=== PATIENT | male | born 1965 | race Caucasian/White ===

== ENCOUNTER 2017-01-19 18:12 | Observation (INO) | payer SELFPAY ==
[~2017-01-19] VITALS: Ht 177.8 cm; Wt 80.0 kg
[2017-01-19 18:21] VITALS: BP 107/59; PULSE 79; RESP 18; TEMP 98.8; O2SAT 98
[2017-01-19] MEDS ORDERED: SODIUM CHLOR 0.9% 1000 ML INJ 1,000 ML IV ONE (18:26)
--- NOTE | 2017-01-19 18:28 | PD ---
HPI Chief Complaint: Complaint Time Seen by Provider: 18:18 Travel History International Travel<30 days: No Contact w/Intl Traveler<30days: No Traveled to known affect area: No History of Present Illness HPI This is a 51-year-old Irish the patient presents via EMS for evaluation. He reports that prior to arrival he developed some pain in the left groin. After urinating the pain began radiating into the left flank region. The pain is now a sharp pain that is constant, no aggravating or relieving factors. He endorses some nausea but denies vomiting. He denies fevers or chills, gross hematuria, testicular or scrotal pain. He reports that he had a kidney stone once 6 years ago. He has no other complaints at this time. [facility] Past Medical History Diabetes: Yes Social History Alcohol Use: No Tobacco Use: No Allergies-Medications (Allergen,Severity, Reaction): Coded Allergies: No Known Allergies (Unverified , 01/19/17) Review of Systems Except as stated in HPI: all other systems reviewed are Neg Physical Exam Narrative GENERAL: Well-developed well-nourished male in no acute distress SKIN: Warm and dry. HEAD: Atraumatic. Normocephalic. EYES: Pupils equal and round. No scleral icterus. No injection or drainage. ENT: No nasal bleeding or discharge. Mucous membranes pink and moist. NECK: Trachea midline. No JVD. CARDIOVASCULAR: Regular rate and rhythm. No murmur appreciated. RESPIRATORY: No accessory muscle use. Clear to auscultation. Breath sounds equal bilaterally. GASTROINTESTINAL: Abdomen soft, non-tender, nondistended. Hepatic and splenic margins not palpable. Mild left CVA tenderness is present. : Normal-appearing scrotum, penis. There is no tenderness to palpation to the testicles. No inguinal hernia palpable. MUSCULOSKELETAL: No obvious deformities. No clubbing. No cyanosis. No edema. NEUROLOGICAL: Awake and alert. No obvious cranial nerve deficits. Motor grossly within normal limits. Normal speech. PSYCHIATRIC: Appropriate mood and affect; insight and judgment normal. Data Data Last Documented VS Vital Signs Date Time Temp Pulse Resp B/P (MAP) Pulse Ox O2 Delivery O2 Flow Rate FiO2 01/19/17 20:08 98.5 69 18 116/62 (80) 96 Room Air Orders Orders Complete Blood Count With Diff (01/19/17 18:26) Comprehensive Metabolic Panel (01/19/17 18:26) Urinalysis - C+S If Indicated (01/19/17 18:26) Ct Abd/Pel W/O Iv Contrast (01/19/17 18:26) Ecg Monitoring (01/19/17 18:26) Iv Access Insert/Monitor (01/19/17 18:26) Ketorolac Inj (Toradol Inj) (01/19/17 18:30) Morphine Inj (Morphine Inj) (01/19/17 18:30) Ondansetron Inj (Zofran Inj) (01/19/17 18:30) Sodium Chloride 0.9% Flush (Ns Flush) (01/19/17 18:30) Sodium Chlor 0.9% 1000 Ml Inj (Ns 1000 M (01/19/17 18:26) Potassium Chloride (Kcl) (01/19/17 20:30) Place In Observation (01/19/17 ) Vital Signs (Adult) Q4H (01/19/17 21:12) Activity Oob With Assistance (01/19/17 21:12) Straightening Press Operator Helper / Telemetry .CONTINUOUS (01/19/17 21:12) Diet Npo (01/20/17 Breakfast) Sodium Chlor 0.9% 1000 Ml Inj (Ns 1000 M (01/19/17 21:12) Sodium Chloride 0.9% Flush (Ns Flush) (01/19/17 21:15) Sodium Chloride 0.9% Flush (Ns Flush) (01/20/17 09:00) Ondansetron Inj (Zofran Inj) (01/19/17 21:15) Comprehensive Metabolic Panel (01/20/17 06:00) Complete Blood Count With Diff (01/20/17 06:00) Case Management Consult (01/19/17 21:12) Naloxone Inj (Narcan Inj) (01/19/17 21:15) Morphine Inj (Morphine Inj) (01/19/17 21:15) Admit Order (Ed Use Only) (01/19/17 21:12) Labs Laboratory Tests Test 01/19/17 18:30 01/19/17 18:40 White Blood Count 13.4 TH/MM3 Red Blood Count 4.34 MIL/MM3 Hemoglobin 13.5 GM/DL Hematocrit 39.7 % Mean Corpuscular Volume 91.4 FL Mean Corpuscular Hemoglobin 31.0 PG Mean Corpuscular Hemoglobin Concent 34.0 % Red Cell Distribution Width 13.2 % Platelet Count 237 TH/MM3 Mean Platelet Volume 8.6 FL Neutrophils (%) (Auto) 59.4 % Lymphocytes (%) (Auto) 26.9 % Monocytes (%) (Auto) 10.1 % Eosinophils (%) (Auto) 3.1 % Basophils (%) (Auto) 0.5 % Neutrophils # (Auto) 8.0 TH/MM3 Lymphocytes # (Auto) 3.6 TH/MM3 Monocytes # (Auto) 1.4 TH/MM3 Eosinophils # (Auto) 0.4 TH/MM3 Basophils # (Auto) 0.1 TH/MM3 CBC Comment DIFF FINAL Differential Comment Blood Urea Nitrogen 17 MG/DL Creatinine 1.16 MG/DL Random Glucose 93 MG/DL Total Protein 7.5 GM/DL Albumin 4.4 GM/DL Calcium Level 8.9 MG/DL Alkaline Phosphatase 77 U/L Aspartate Amino Transf (AST/SGOT) 26 U/L Alanine Aminotransferase (ALT/SGPT) 59 U/L Total Bilirubin 0.8 MG/DL Sodium Level 140 MEQ/L Potassium Level 3.2 MEQ/L Chloride Level 105 MEQ/L Carbon Dioxide Level 24.8 MEQ/L Anion Gap 10 MEQ/L Estimat Glomerular Filtration Rate 67 ML/MIN Urine Color YELLOW Urine Turbidity CLEAR Urine pH 6.5 Urine Specific [place] 1.025 Urine Protein 30 mg/dL Urine Glucose (UA) NEG mg/dL Urine Ketones 40 mg/dL Urine Occult Blood LARGE Urine Nitrite NEG Urine Bilirubin NEG Urine Urobilinogen 2.0 MG/DL Urine Leukocyte Esterase NEG Urine RBC /hpf Urine WBC 2 /hpf Microscopic Urinalysis Comment CULT NOT INDICATED MDM Medical Decision Making Medical Screen Exam Complete: Yes Emergency Medical Condition: Yes Medical Record Reviewed: Yes Differential Diagnosis Renal stone, hydronephrosis, testicular torsion, inguinal hernia, diverticulitis Narrative Course 51-year-old male here with left flank and groin pain which started prior to arrival. He appears well. Plan is for basic lab work, urinalysis, CT abdomen and pelvis. Given IV fluids, morphine, Zofran and Toradol. Upon examination he feels significant improved, still mild pain. CONCLUSION: 1. Acute obstructive uropathy on the left secondary to a 4 mm calcified calculus just proximal to the left ureterovesical junction resulting in mild ureteropelvicaliectasis on the left. 2. 3. Fluid-filled dilated retrocecal appendix with minimal periappendiceal inflammatory changes raising the possibility of appendicitis. This finding was called to the physician's physician assistant surgery at 8: 4. 20 PM on 01/19/2017 as this is likely unsuspected. 5. Tiny calcified nonobstructing right renal calculi. 6. Enlarged prostate. 7. Hepatomegaly. CT findings reveal an acute obstructive uropathy on the left as well as surprisingly a fluid-filled dilated retrocecal appendix with mild inflammatory changes raising the possibility of appendicitis. He does have mild leukocytosis. He has no tenderness to palpation in the right lower quadrant. Discussed the findings with on-call surgeon Dr. Hancock who would like the patient to be admitted to medicine with consultation himself, NPO after midnight reevaluate the patient tomorrow. Discussed with the patient is agreeable. Discussed with Dr. Guallpa who is agreeable with admission. Diagnosis Primary Impression: Obstructive uropathy Additional Impression: Atypical appendicitis Admitting Information Admitting Physician Requests: Observation Willam Sellers Jan 19, 2017 18:28
[2017-01-19] MEDS ORDERED: ONDANSETRON HCL 4 MG/2 ML VIAL IVP ONE (18:30)
[2017-01-19] MEDS ORDERED: KETOROLAC TROMETHAMINE 30 MG/ML (IVP) VIAL IVP ONE (18:30)
[2017-01-19] MEDS ORDERED: MORPHINE SULFATE 4 MG/ML INJ IV ONE (18:30)
[2017-01-19] MEDS ORDERED: SODIUM CHLORIDE 0.9% FLUSH 10 ML FLUSH IVF PRN (18:30)
[2017-01-19 18:59] LABS: BLOOD, URINE LARGE (NEG); COMMENT (UR) CULT NOT INDICATED; CULTURE IF INDICATED CULT NOT INDICATED; GLUCOSE,URINE NEG (NEG); KETONE, URINE 40 mg/dL (NEG); NITRITE,URINE NEG (NEG); PH, URINE 6.5 (5.0-8.5); URINE COLOR YELLOW (YELLW/STRAW)
[2017-01-19 19:00] LABS: BASOPHIL # 0.1 TH/MM3 (0-0.2); BASOPHIL % 0.5 % (0.0-2.0); EOSINOPHIL # 0.4 TH/MM3 (0-0.4); EOSINOPHIL % 3.1 % (0.0-4.0); HEMATOCRIT 39.7 % (39.0-51.0); HEMO FLAGS DIFF FINAL; LYMPH % 26.9 % (9.0-44.0); LYMPHOCYTE # 3.6 TH/MM3 (1.0-4.8); MEAN CELL VOLUME 91.4 FL (80.0-100.0); MONO % 10.1 % (0.0-8.0); NEUT % 59.4 % (16.0-70.0); PLATELET COUNT 237 TH/MM3 (150-450); RED BLOOD COUNT 4.34 MIL/MM3 (4.50-5.90); RED CELL DISTRIBUTION WIDTH 13.2 % (11.6-17.2); WHITE BLOOD COUNT 13.4 TH/MM3 (4.0-11.0)
[2017-01-19 19:10] LABS: ANION GAP 10 MEQ/L (5-15); AST (GOT) 26 U/L (15-37); BICARBONATE 24.8 MEQ/L (21.0-32.0); BLOOD UREA NITROGEN 17 MG/DL (7-18); CHLORIDE 105 MEQ/L (98-107); GLOMERULAR FILTRATION RATE 67 ML/MIN (>89); POTASSIUM 3.2 MEQ/L (3.5-5.1); SODIUM (NA) 140 MEQ/L (136-145)
[2017-01-19 19:11] LABS: ALT (GPT) 59 U/L (12-78)
[2017-01-19 19:13] LABS: ALKALINE PHOSPHATASE 77 U/L (45-117); TOTAL BILIRUBIN ADULT 0.8 MG/DL (0.2-1.0)
[2017-01-19 20:08] VITALS: BP 116/62; PULSE 69; RESP 18; TEMP 98.5; O2SAT 96
[2017-01-19] MEDS ORDERED: POTASSIUM CHLORIDE 20 MEQ CONTROLLED RELEASE TAB PO ONE (20:30)
--- NOTE | 2017-01-19 20:34 | RADRPT ---
EXAM DATE/TIME: 01/19/2017 19:50 [place] COMPARISON: No previous studies available for comparison. INDICATIONS : Left flank pain past week. ORAL CONTRAST: No oral contrast ingested. RADIATION DOSE: 13.83 CTDIvol (mGy) MEDICAL HISTORY : Diabetes mellitus type 2. Renal calculi. SURGICAL HISTORY : None. ENCOUNTER: Initial ACUITY: 1 week PAIN SCALE: 8/10 LOCATION: Left flank TECHNIQUE: Volumetric scanning of the abdomen and pelvis was performed. Using automated exposure control and ad justment of the mA and/or kV according to patient size, radiation dose was kept as low as reasonably achievable to obtain optimal diagnostic quality images. DICOM format image data is available electro nically for review and comparison. FINDINGS: There is evidence of acute obstructive uropathy of the left distal ureter secondary to a 4 mm calcifi ed calculus at the level just above the left ureterovesical junction resulting in mild ureteropelvica liectasis on the left. Tiny calcified nonobstructing right renal calculi are noted with the larger of the two measuring approximately 3 mm. The liver is prominent in size. Evaluation of the solid orga ns of the abdomen is limited by the lack of intravenous contrast. No calcified gallstone is noted wit hin the gallbladder. There is evidence of a fluid-filled mildly dilated appendix with minimal periap pendiceal inflammatory changes raising the possibility of appendicitis. Clinical correlation is recom mended. This finding was called to the physician real estate executive assistant as this likely is unsuspected. The append ix is retrocecal in location. The prostate gland is mildly prominent. The urinary bladder is unremar kable. CONCLUSION: 1. Acute obstructive uropathy on the left secondary to a 4 mm calcified calculus just proximal to the left ureterovesical junction resulting in mild ureteropelvicaliectasis on the left. 2. 3. Fluid-filled dilated retrocecal appendix with minimal periappendiceal inflammatory changes raising the possibility of appendicitis. This finding was called to the physician's real estate executive assistant at 8: 4. 20 PM on 01/19/2017 as this is likely unsuspected. 5. Tiny calcified nonobstructing right renal calculi. 6. Enlarged prostate. 7. Hepatomegaly. Pasquale Obando MD on January 19, 2017 at 20:14 Board Certified Radiologist. This report was verified electronically.
[2017-01-19] MEDS ORDERED: NALOXONE HCL 0.4 MG/ML AMP IV PUSH PRN (21:15)
[2017-01-19] MEDS ORDERED: MORPHINE SULFATE 4 MG/ML INJ IV PUSH PRN (21:15)
[2017-01-19] MEDS ORDERED: ONDANSETRON HCL 4 MG/2 ML VIAL IVP PRN (21:15)
[2017-01-19] MEDS ORDERED: SODIUM CHLORIDE 0.9% FLUSH 10 ML FLUSH IV FLUSH PRN (21:15)
[2017-01-19] MEDS: SODIUM CHLOR 0.9% 1000 ML INJ 1,000 ML IV SCH (21:38)
[2017-01-19 23:35] VITALS: BP 137/81; PULSE 66; RESP 18; TEMP 98.4; O2SAT 96
[2017-01-20 03:26] VITALS: BP 135/79; PULSE 68; RESP 18; TEMP 98.4; O2SAT 97
[2017-01-20 05:34] VITALS: PULSE 72
[2017-01-20 07:15] VITALS: PULSE 56
[2017-01-20 07:32] LABS: AUTOMATED NEUTROPHIL # 5.8 TH/MM3 (1.8-7.7); BASOPHIL # 0.1 TH/MM3 (0-0.2); BASOPHIL % 0.8 % (0.0-2.0); EOSINOPHIL # 0.3 TH/MM3 (0-0.4); EOSINOPHIL % 3.5 % (0.0-4.0); HEMATOCRIT 37.4 % (39.0-51.0); HEMO FLAGS DIFF FINAL; LYMPH % 25.7 % (9.0-44.0); LYMPHOCYTE # 2.5 TH/MM3 (1.0-4.8); MEAN CELL VOLUME 92.7 FL (80.0-100.0); MEAN CORPUSCULAR HEMOGLOBIN 31.6 PG (27.0-34.0); MONO % 11.2 % (0.0-8.0); NEUT % 58.8 % (16.0-70.0); PLATELET COUNT 217 TH/MM3 (150-450); RED BLOOD COUNT 4.04 MIL/MM3 (4.50-5.90); RED CELL DISTRIBUTION WIDTH 13.3 % (11.6-17.2); WHITE BLOOD COUNT 9.8 TH/MM3 (4.0-11.0)
[2017-01-20] MEDS: SODIUM CHLOR 0.9% 1000 ML INJ 1,000 ML IV SCH (07:52)
[2017-01-20 08:07] LABS: ALKALINE PHOSPHATASE 63 U/L (45-117); ALT (GPT) 52 U/L (12-78); ANION GAP 6 MEQ/L (5-15); AST (GOT) 24 U/L (15-37); BICARBONATE 23.6 MEQ/L (21.0-32.0); BLOOD UREA NITROGEN 15 MG/DL (7-18); CHLORIDE 111 MEQ/L (98-107); GLOMERULAR FILTRATION RATE 93 ML/MIN (>89); SODIUM (NA) 141 MEQ/L (136-145); TOTAL BILIRUBIN ADULT 1.2 MG/DL (0.2-1.0)
[2017-01-20 08:15] VITALS: BP 114/67; PULSE 63; RESP 16; TEMP 98.1; O2SAT 95
[2017-01-20] MEDS ORDERED: SODIUM CHLORIDE 0.9% FLUSH 10 ML FLUSH IV FLUSH SCH (09:00)
--- NOTE | 2017-01-20 11:09 | HHI.HP ---
[facility] No Primary Care Physician Admission Diagnosis left obstructive uropathy, possible appendicitis Diagnoses: Chief Complaint: left groin pain Travel History International Travel<30 Days: No Contact w/Intl Traveler <30 Da: No Traveled to Known Affected Are: No History of Present Illness Written by Carolann Foy, acting as scribe for Dr. Rosa on 01/20/17 at 10: 45. 51-year-old male with history of diabetes mellitus and hypertension presents with acute onset of left groin pain. 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 The patient's symptoms started at 5:30pm yesterday. He states he was walking and lifting objects when a few seconds later he developed the pain. He locates the pain to the left groin with radiation to the left flank, described as intermittent stabbing pains. He also reports nausea, but no vomiting, which started after the pain. He reports chills but no fevers. He denies any lightheadedness or dizziness. Denies any constipation or diarrhea. His last BM was yesterday morning. He denies any dysuria. He has no other medical complaints at this time. Currently the patient is seen in observation, his symptoms have improved, he wants to eat. Review of Systems Except as stated in HPI: all other systems reviewed are Neg Past Family Social History Past Medical History Diabetes mellitus Hypertension Past Surgical History Denies any prior surgeries. Reported Medications Glibenclamida (glyburide) 5mg 1/2 tablet 3x a day with meals enalapril 10mg daily Allergies: Coded Allergies: No Known Allergies (Unverified , 01/19/17) Active Ordered Medications Current Medications Medications (Trade) Dose Ordered Sig/Karma Route Start Time Stop Time Status Last Admin Sodium Chloride 1,000 ml @ 100 mls/hr Q10H IV 01/19/17 21:12 01/20/17 07:52 (NS Flush) 2 ml UNSCH PRN IV FLUSH 01/19/17 21:15 (NS Flush) 2 ml BID IV FLUSH 01/20/17 09:00 (Zofran Inj) 4 mg Q6H PRN IVP 01/19/17 21:15 (Narcan Inj) 0.4 mg UNSCH PRN IV PUSH 01/19/17 21:15 (Morphine Inj) 2 mg Q3H PRN IV PUSH 01/19/17 21:15 01/20/17 05:24 Family History Denies any significant family history of diabetes, heart disease, or stroke. Social History Smokes tobacco, approximately 10 cigarettes daily, sometimes less; since age 19 Denies any alcohol use Denies any illicit drug use Physical Exam Vital Signs Vital Signs Date Time Temp Pulse Resp B/P (MAP) Pulse Ox O2 Delivery O2 Flow Rate FiO2 01/20/17 08:15 98.1 63 16 114/67 (83) 95 01/20/17 07:15 56 01/20/17 05:34 72 01/20/17 03:26 98.4 68 18 135/79 (97) 97 01/19/17 23:35 98.4 66 18 137/81 (99) 96 01/19/17 22:00 01/19/17 20:08 98.5 69 18 116/62 (80) 96 Room Air 01/19/17 18:21 98.8 79 18 107/59 (75) 98 Physical Exam GENERAL: Well-nourished, well-developed middle aged male patient in [facility]. SKIN: Warm and dry. No rash. HEAD: Normocephalic. Atraumatic. EYES: Pupils equal and round. No scleral icterus. No injection or drainage. ENT: No nasal bleeding or discharge. Mucous membranes pink and moist. NECK: Supple. Trachea midline. CARDIOVASCULAR: Regular rate and rhythm. S1, S2 noted. No murmur appreciated. RESPIRATORY: No accessory muscle use. Clear to auscultation. Breath sounds equal bilaterally. GASTROINTESTINAL: Abdomen soft, non-tender, nondistended. Normoactive bowel sounds x4. No palpable masses or hernias. MUSCULOSKELETAL: No obvious deformities. Extremities without clubbing, cyanosis , or edema. NEUROLOGICAL: Awake and alert. No obvious cranial nerve deficits. Motor grossly within normal limits. Normal speech. PSYCHIATRIC: Appropriate mood and affect; insight and judgment normal. Laboratory Laboratory Tests Test 01/19/17 18:30 01/19/17 18:40 01/20/17 06:37 White Blood Count 13.4 9.8 Red Blood Count 4.34 4.04 Hemoglobin 13.5 12.7 Hematocrit 39.7 37.4 Mean Corpuscular Volume 91.4 92.7 Mean Corpuscular Hemoglobin 31.0 31.6 Mean Corpuscular Hemoglobin Concent 34.0 34.0 Red Cell Distribution Width 13.2 13.3 Platelet Count 237 217 Mean Platelet Volume 8.6 8.7 Neutrophils (%) (Auto) 59.4 58.8 Lymphocytes (%) (Auto) 26.9 25.7 Monocytes (%) (Auto) 10.1 11.2 Eosinophils (%) (Auto) 3.1 3.5 Basophils (%) (Auto) 0.5 0.8 Neutrophils # (Auto) 8.0 5.8 Lymphocytes # (Auto) 3.6 2.5 Monocytes # (Auto) 1.4 1.1 Eosinophils # (Auto) 0.4 0.3 Basophils # (Auto) 0.1 0.1 CBC Comment DIFF FINAL DIFF FINAL Differential Comment Blood Urea Nitrogen 17 15 Creatinine 1.16 0.87 Random Glucose 93 96 Total Protein 7.5 6.5 Albumin 4.4 3.3 Calcium Level 8.9 8.1 Alkaline Phosphatase 77 63 Aspartate Amino Transf (AST/SGOT) 26 24 Alanine Aminotransferase (ALT/SGPT) 59 52 Total Bilirubin 0.8 1.2 Sodium Level 140 141 Potassium Level 3.2 4.0 Chloride Level 105 111 Carbon Dioxide Level 24.8 23.6 Anion Gap 10 6 Estimat Glomerular Filtration Rate 67 93 Urine Color YELLOW Urine Turbidity CLEAR Urine pH 6.5 Urine Specific [place] 1.025 Urine Protein 30 Urine Glucose (UA) NEG Urine Ketones 40 Urine Occult Blood LARGE Urine Nitrite NEG Urine Bilirubin NEG Urine Urobilinogen 2.0 Urine Leukocyte Esterase NEG Urine RBC Urine WBC 2 Microscopic Urinalysis Comment CULT NOT INDICATED Result Diagram: 01/20/17 0637 01/20/17 0637 Imaging Last Impressions Abdomen/Pelvis CT 01/19/17 1826 Signed Impressions: Service Date/Time: Thursday, January 19, 2017 19:50 - CONCLUSION: 1. Acute obstructive uropathy on the left secondary to a 4 mm calcified calculus just proximal to the left ureterovesical junction resulting in mild ureteropelvicaliectasis on the left. 2. 3. Fluid-filled dilated retrocecal appendix with minimal periappendiceal inflammatory changes raising the possibility of appendicitis. This finding was called to the physician's social work assistant at 8: 4. 20 PM on 01/19/2017 as this is likely unsuspected. 5. Tiny calcified nonobstructing right renal calculi. 6. Enlarged prostate. 7. Hepatomegaly. MD Katey Ramirez VTE Risk Assessment Caprini VTE Risk Assessment: No/Low Risk (score <= 1) Caprini Risk Assessment Model Point Value = 1 Point Value = 2 Point Value = 3 Point Value = 5 Age 41-60 Minor surgery BMI > 25 kg/m2 Swollen legs Varicose veins or History of unexplained or recurrent spontaneous Oral contraceptives or hormone replacement Sepsis (< 1 month) Serious lung disease, including pneumonia (< 1 month) Abnormal pulmonary function Acute myocardial infarction Congestive heart failure (< 1 month) History of inflammatory bowel disease Medical patient at bed rest Age 61-74 Arthroscopic surgery Major open surgery (> 45 min) Laparoscopic surgery (> 45 min) Malignancy Confined to bed (> 72 hours) Immobilizing plaster cast Central venous access Age >= 75 History of VTE Family history of VTE Factor V Leiden Prothrombin [id number] Lupus anticoagulant Anticardiolipin antibodies Elevated serum homocysteine Heparin-induced thrombocytopenia Other congenital or acquired thrombophilia Stroke (< 1 month) Elective arthroplasty Hip, pelvis, or leg fracture Acute spinal cord injury (< 1 month) Prophylaxis Regimen Total Risk Factor Score Risk Level Prophylaxis Regimen 0-1 Low Early ambulation 2 Moderate Order ONE of the following: *Sequential Compression Device (SCD) *Heparin 5000 units SQ BID 3-4 Higher Order ONE of the following medications: *Heparin 5000 units SQ TID *Enoxaparin/Lovenox 40 mg SQ daily (WT < 150 kg, CrCl > 30 mL/min) *Enoxaparin/Lovenox 30 mg SQ daily (WT < 150 kg, CrCl > 10-29 mL/min) *Enoxaparin/Lovenox 30 mg SQ BID (WT < 150 kg, CrCl > 30 mL/min) AND/OR *Sequential Compression Device (SCD) 5 or more Highest Order ONE of the following medications: *Heparin 5000 units SQ TID (Preferred with Epidurals) *Enoxaparin/Lovenox 40 mg SQ daily (WT < 150 kg, CrCl > 30 mL/min) *Enoxaparin/Lovenox 30 mg SQ daily (WT < 150 kg, CrCl > 10-29 mL/min) *Enoxaparin/Lovenox 30 mg SQ BID (WT < 150 kg, CrCl > 30 mL/min) AND *Sequential Compression Device (SCD) Assessment and Plan Problem List: (1) Obstructive uropathy ICD Code: N13.9 - Obstructive and reflux uropathy, unspecified Status: Acute (2) Atypical appendicitis ICD Code: K36 - Other appendicitis Status: Acute Assessment and Plan 51-year-old male with history of diabetes mellitus and hypertension presents with acute onset of left groin pain. Left Groin Pain, secondary to Obstructive Uropathy with Nephrolithiasis: CT abd/ pelvis images reviewed, shows Acute obstructive uropathy on the left secondary to a 4 mm calcified calculus just proximal to the left ureterovesical junction resulting in mild ureteropelvicaliectasis on the left. -continue IVF -supportive treatment with pain control and antiemetics prn -consulted Urology, discussed with Dr. Jimenez, no surgery indicated as patient's pain resolved, likely passed stone, recommends toradol and flomax, ok to d/c from urological standpoint Abnormal Appendix: CT abd/pelvis also showed Fluid-filled dilated retrocecal appendix with minimal periappendiceal inflammatory changes raising the possibility of appendicitis. Patient has no RLQ pain. 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 Pain well controlled. He tolerated oral intake. Stable for discharge. He plans to return to [place]. Discharge patient to home Condition on discharge: Improved Heart Healthy/Diabetic Diet as tolerated Ad Daria activity Rx written: flomax 0.4mg daily, ketorolac 10mg q8h prn pain #20 Follow-up with primary care physician and urology Attending Statement This note was transcribed by nando [Carolann Foy]. I, Dr. Kaiser Rosa personally performed the history, physical exam, and medical decision making; and confirmed the accuracy of the information in the transcribed note. Authenticated by Dr. Kaiser Rosa on 01/20/17 at 22:23. Carolann Foy PA-C Jan 20, 2017 10:48 Kaiser Rosa MD Jan 20, 2017 22:23
--- NOTE | 2017-01-20 11:37 | PD.CONS ---
HPI Service General surgery Consult Requested By Reason for Consult Abnormal appendix on imaging Primary Care Physician No Primary Care Physician History of Present Illness The patient is a 51-year-old male here for [place] to work. He presents with left groin pain radiating to the left inguinal and left flank areas starting yesterday. He had mild leukocytosis and was noted to have an obstructing 4 mm left ureteral stone yesterday on CT abdomen and pelvis. The CT scan also showed dilation of the appendix. The patient denies any right lower quadrant pain whatsoever. He had mild nausea at the initiation of the left sided pain. The patient is primarily a Korean-speaking and Korean-speaking silver chaser was used for translation. Review of Systems Constitutional: DENIES: Fever, Chills Eyes: DENIES: Eye inflammation, Eye pain Respiratory: DENIES: Cough, Shortness of breath Cardiovascular: DENIES: Chest pain, Palpitations Gastrointestinal: COMPLAINS OF: Abdominal pain, Nausea, DENIES: Vomiting Musculoskeletal: DENIES: Stiffness, Joint Swelling Integumentary: DENIES: Pruritus, Rash Neurologic: DENIES: Paresthesias, Seizures Past Family Social History Past Medical History Hypertension Diabetes mellitus Past Surgical History None Reported Medications Glibenclamida (glyburide) 5mg 1/2 tablet 3x a day with meals enalapril 10mg daily Allergies: Coded Allergies: No Known Allergies (Unverified , 01/19/17) Active Ordered Medications Current Medications Medications (Trade) Dose Ordered Sig/Karma Route Start Time Stop Time Status Last Admin Sodium Chloride 1,000 ml @ 100 mls/hr Q10H IV 01/19/17 21:12 01/20/17 07:52 (NS Flush) 2 ml UNSCH PRN IV FLUSH 01/19/17 21:15 (NS Flush) 2 ml BID IV FLUSH 01/20/17 09:00 (Zofran Inj) 4 mg Q6H PRN IVP 01/19/17 21:15 (Narcan Inj) 0.4 mg UNSCH PRN IV PUSH 01/19/17 21:15 (Morphine Inj) 2 mg Q3H PRN IV PUSH 01/19/17 21:15 01/20/17 05:24 Family History Noncontributory Social History No alcohol or drug use. He lives in [place]. Smokes about half pack cigarettes daily. Physical Exam Vital Signs Vital Signs Date Time Temp Pulse Resp B/P (MAP) Pulse Ox O2 Delivery O2 Flow Rate FiO2 01/20/17 08:15 98.1 63 16 114/67 (83) 95 01/20/17 07:15 56 01/20/17 05:34 72 01/20/17 03:26 98.4 68 18 135/79 (97) 97 01/19/17 23:35 98.4 66 18 137/81 (99) 96 01/19/17 22:00 01/19/17 20:08 98.5 69 18 116/62 (80) 96 Room Air 01/19/17 18:21 98.8 79 18 107/59 (75) 98 Physical Exam GENERAL: Awake and alert. No acute distress. Cooperative. HEAD: Normocephalic. Atraumatic. EYES: Pupils equal round and reactive to light bilaterally. No scleral icterus. ENT: Moist oral mucosa. NECK: Trachea midline. CHEST: Lungs clear to auscultation bilaterally with no wheezing or rhonchi. No respiratory distress. CARDIOVASCULAR: Regular rate and rhythm. ABDOMEN: Soft nontender nondistended. Specifically no tenderness in the right lower quadrant. EXTREMITIES: No cyanosis or edema. SKIN: Warm, dry, nonjaundiced. Laboratory Laboratory Tests Test 01/19/17 18:30 01/19/17 18:40 01/20/17 06:37 White Blood Count 13.4 9.8 Red Blood Count 4.34 4.04 Hemoglobin 13.5 12.7 Hematocrit 39.7 37.4 Mean Corpuscular Volume 91.4 92.7 Mean Corpuscular Hemoglobin 31.0 31.6 Mean Corpuscular Hemoglobin Concent 34.0 34.0 Red Cell Distribution Width 13.2 13.3 Platelet Count 237 217 Mean Platelet Volume 8.6 8.7 Neutrophils (%) (Auto) 59.4 58.8 Lymphocytes (%) (Auto) 26.9 25.7 Monocytes (%) (Auto) 10.1 11.2 Eosinophils (%) (Auto) 3.1 3.5 Basophils (%) (Auto) 0.5 0.8 Neutrophils # (Auto) 8.0 5.8 Lymphocytes # (Auto) 3.6 2.5 Monocytes # (Auto) 1.4 1.1 Eosinophils # (Auto) 0.4 0.3 Basophils # (Auto) 0.1 0.1 CBC Comment DIFF FINAL DIFF FINAL Differential Comment Blood Urea Nitrogen 17 15 Creatinine 1.16 0.87 Random Glucose 93 96 Total Protein 7.5 6.5 Albumin 4.4 3.3 Calcium Level 8.9 8.1 Alkaline Phosphatase 77 63 Aspartate Amino Transf (AST/SGOT) 26 24 Alanine Aminotransferase (ALT/SGPT) 59 52 Total Bilirubin 0.8 1.2 Sodium Level 140 141 Potassium Level 3.2 4.0 Chloride Level 105 111 Carbon Dioxide Level 24.8 23.6 Anion Gap 10 6 Estimat Glomerular Filtration Rate 67 93 Urine Color YELLOW Urine Turbidity CLEAR Urine pH 6.5 Urine Specific [place] 1.025 Urine Protein 30 Urine Glucose (UA) NEG Urine Ketones 40 Urine Occult Blood LARGE Urine Nitrite NEG Urine Bilirubin NEG Urine Urobilinogen 2.0 Urine Leukocyte Esterase NEG Urine RBC Urine WBC 2 Microscopic Urinalysis Comment CULT NOT INDICATED Result Diagram: 01/20/17 0637 01/20/17 0637 Imaging Last Impressions Abdomen/Pelvis CT 01/19/17 1826 Signed Impressions: Service Date/Time: Thursday, January 19, 2017 19:50 - CONCLUSION: 1. Acute obstructive uropathy on the left secondary to a 4 mm calcified calculus just proximal to the left ureterovesical junction resulting in mild ureteropelvicaliectasis on the left. 2. 3. Fluid-filled dilated retrocecal appendix with minimal periappendiceal inflammatory changes raising the possibility of appendicitis. This finding was called to the physician's patient assistant at 8: 4. 20 PM on 01/19/2017 as this is likely unsuspected. 5. Tiny calcified nonobstructing right renal calculi. 6. Enlarged prostate. 7. Hepatomegaly. Pasquale Obando MD Assessment and Plan Assessment and Plan 51-year-old male with left ureteral obstructing stone and incidental finding of dilated appendix with small amount of periappendiceal inflammation. The patient does not appear to have appendicitis at this time. Start regular diet. He can be discharged home from my standpoint. I do recommend that he obtain his medical records from this hospitalization and consider repeat CT scan in a few months to follow up the abnormal appendix. I discussed this in detail with him and he understands. He lives in [place] and this will be followed up in [place]. Santi,Melquiades POST Jan 20, 2017 11:37
[2017-01-20 11:57] VITALS: BP 113/64; PULSE 62; RESP 18; TEMP 98.4; O2SAT 95
[2017-01-20 12:03] VITALS: PULSE 57
[2017-01-20] MEDS ORDERED: GLYB2.5T3 PO (12:55)
[2017-01-20] MEDS ORDERED: ENAL10TA PO (12:55)
[2017-01-20] MEDS ORDERED: GLUCAGON 1 MG/ML VIAL OTHER PRN (13:00)
[2017-01-20] MEDS ORDERED: DEXTROSE 50% IN WATER 50 ML VIAL(D50) IV PUSH PRN (13:00)
[2017-01-20] MEDS ORDERED: KETOROLAC TROMETHAMINE 30 MG/ML (IVP) VIAL IV PUSH ONE (13:30)
[2017-01-20] MEDS ORDERED: TAMS5CAP PO (13:32)
[2017-01-20] MEDS ORDERED: KETO10 PO (13:32)
--- NOTE | 2017-01-20 13:34 | HHI.DCPOC ---
Discharge Care Plan Diagnosis: (1) Kidney stone on left side (2) HTN (hypertension) (3) Diabetes mellitus Goals to Promote Your Health * To prevent worsening of your condition and complications * To maintain your health at the optimal level Directions to Meet Your Goals Take your medications as prescribed Follow your dietary instruction Follow activity as directed Keep your appointments as scheduled Take your immunizations and boosters as scheduled If your symptoms worsen call your PCP, if no PCP go to Urgent Care Center or Emergency Room Smoking is Dangerous to Your Health. Avoid second hand smoke Call the 24-hour hour crisis hotline for domestic abuse at Carolann Foy PA-C Jan 20, 2017 1:34 pm
--- NOTE | 2017-01-20 14:06 | PD.CONS ---
HPI Service Urology Consult Requested By Reason for Consult Nephrolithiasis Primary Care Physician No Primary Care Physician Diagnosis: (1) Obstructive uropathy ICD Code: N13.9 - Obstructive and reflux uropathy, unspecified (2) Atypical appendicitis ICD Code: K36 - Other appendicitis History of Present Illness 51yo Albanian speaking male admitted for left flank pain with 4mm distal ureteral stone noted on CT scan. Patient reports he developed significant left flank pain yesterday that was acute onset, sharp and stabbing to the left groin and left flank. He has never had this kind of pain before. Denies any history of kidney stones. Currently his pain is minimal to none, no N/V. No hematuria. No fevers. Review of Systems ROS Limitations: Clinical Condition Constitutional: DENIES: Fever Endocrine: DENIES: Polyuria Eyes: DENIES: Blurred vision Ears, nose, mouth, throat: DENIES: Hearing loss Respiratory: DENIES: Apneas, Cough Cardiovascular: DENIES: Chest pain Gastrointestinal: DENIES: Abdominal pain Genitourinary: DENIES: Urgency, Hematuria, Dysuria Musculoskeletal: DENIES: Joint pain Integumentary: DENIES: Abnormal pigmentation Hematologic/lymphatic: DENIES: Bruising Neurologic: DENIES: Headache Psychiatric: DENIES: Anxiety Except as stated in HPI: all other systems reviewed are Neg Past Family Social History Past Medical History HTN DM Past Surgical History None Reported Medications Reported Meds & Active Scripts Active Flomax (Tamsulosin HCl) 0.4 Mg Cap 0.4 Mg PO HS Ketorolac (Ketorolac Tromethamine) 10 Mg Tab 10 Mg PO Q8HR PRN Enalapril (Enalapril Maleate) 10 Mg Tab 10 Mg PO DAILY Glyburide 2.5 Mg Tab 2.5 Mg PO TIDAC Take with meals at the same time each day Allergies: Coded Allergies: No Known Allergies (Unverified , 01/19/17) Family History Family history reviewed and noncontributory to present illness Social History No alcohol or drug use. He lives in [place]. Smokes about half pack cigarettes daily. Physical Exam Vital Signs Date Time Temp Pulse Resp B/P (MAP) Pulse Ox O2 Delivery O2 Flow Rate FiO2 01/20/17 12:03 57 01/20/17 11:57 98.4 62 18 113/64 (80) 95 01/20/17 08:15 98.1 63 16 114/67 (83) 95 01/20/17 07:15 56 01/20/17 05:34 72 01/20/17 03:26 98.4 68 18 135/79 (97) 97 01/19/17 23:35 98.4 66 18 137/81 (99) 96 01/19/17 22:00 01/19/17 20:08 98.5 69 18 116/62 (80) 96 Room Air 01/19/17 18:21 98.8 79 18 107/59 (75) 98 Physical Exam GENERAL: This is a well-nourished, well-developed patient, in no apparent distress. SKIN: No rashes, ecchymoses or lesions. Cool and dry. HEAD: Atraumatic. Normocephalic. EYES: Extraocular motions intact. No scleral icterus. No injection or drainage. ENT: Nose without bleeding, purulent drainage. Airway patent. NECK: Trachea midline. No JVD CARDIOVASCULAR: Normal pulses. RESPIRATORY: Nonlabored, equal chest rise GASTROINTESTINAL: Abdomen soft, non-tender, nondistended. MUSCULOSKELETAL: Extremities without clubbing, cyanosis, or edema. NEUROLOGICAL: Awake and alert. Motor and sensory grossly within normal limits. Normal speech. Laboratory Tests Test 01/19/17 18:30 01/19/17 18:40 01/20/17 06:37 White Blood Count 13.4 9.8 Red Blood Count 4.34 4.04 Hemoglobin 13.5 12.7 Hematocrit 39.7 37.4 Mean Corpuscular Volume 91.4 92.7 Mean Corpuscular Hemoglobin 31.0 31.6 Mean Corpuscular Hemoglobin Concent 34.0 34.0 Red Cell Distribution Width 13.2 13.3 Platelet Count 237 217 Mean Platelet Volume 8.6 8.7 Neutrophils (%) (Auto) 59.4 58.8 Lymphocytes (%) (Auto) 26.9 25.7 Monocytes (%) (Auto) 10.1 11.2 Eosinophils (%) (Auto) 3.1 3.5 Basophils (%) (Auto) 0.5 0.8 Neutrophils # (Auto) 8.0 5.8 Lymphocytes # (Auto) 3.6 2.5 Monocytes # (Auto) 1.4 1.1 Eosinophils # (Auto) 0.4 0.3 Basophils # (Auto) 0.1 0.1 CBC Comment DIFF FINAL DIFF FINAL Differential Comment Blood Urea Nitrogen 17 15 Creatinine 1.16 0.87 Random Glucose 93 96 Total Protein 7.5 6.5 Albumin 4.4 3.3 Calcium Level 8.9 8.1 Alkaline Phosphatase 77 63 Aspartate Amino Transf (AST/SGOT) 26 24 Alanine Aminotransferase (ALT/SGPT) 59 52 Total Bilirubin 0.8 1.2 Sodium Level 140 141 Potassium Level 3.2 4.0 Chloride Level 105 111 Carbon Dioxide Level 24.8 23.6 Anion Gap 10 6 Estimat Glomerular Filtration Rate 67 93 Urine Color YELLOW Urine Turbidity CLEAR Urine pH 6.5 Urine Specific [place] 1.025 Urine Protein 30 Urine Glucose (UA) NEG Urine Ketones 40 Urine Occult Blood LARGE Urine Nitrite NEG Urine Bilirubin NEG Urine Urobilinogen 2.0 Urine Leukocyte Esterase NEG Urine RBC Urine WBC 2 Microscopic Urinalysis Comment CULT NOT INDICATED Result Diagram: 01/20/17 0637 01/20/17 0637 Personally reviewed images: Yes Imaging Last Impressions Abdomen/Pelvis CT 01/19/17 1826 Signed Impressions: Service Date/Time: Tuesday, January 19, 2017 19:50 - CONCLUSION: 1. Acute obstructive uropathy on the left secondary to a 4 mm calcified calculus just proximal to the left ureterovesical junction resulting in mild ureteropelvicaliectasis on the left. 2. 3. Fluid-filled dilated retrocecal appendix with minimal periappendiceal inflammatory changes raising the possibility of appendicitis. This finding was called to the physician's radiology physician assistant at 8: 4. 20 PM on 01/19/2017 as this is likely unsuspected. 5. Tiny calcified nonobstructing right renal calculi. 6. Enlarged prostate. 7. Hepatomegaly. Pasquale Obando MD Assessment and Plan Problem List: (1) Kidney stone on left side ICD Code: N20.0 - Calculus of kidney (2) Nephrolithiasis ICD Code: N20.0 - Calculus of kidney Assessment and Plan -Images personally reviewed, 4mm distal left ureteral stone -Currently the patient is comfortable, no pain -Patient has a high likelihood of passing the stone, if not already passed -Discussed with patient cystoscopy, stent placement and possible ureteroscopy. However the patient feels well and does not wish for intervention at this time -Patient is clear for discharge from urology standpoint with flomax -Please call with questions Lex Jimenez MD Jan 20, 2017 14:06
[2017-01-20] MEDS ORDERED: INSULIN ASPART SUPPLEMENTAL SCALE SQ SCH (17:00)
[2017-01-21] MEDS ORDERED: ENALAPRIL MALEATE 10 MG TAB PO SCH (09:00)
[2017-01-21] MEDS ORDERED: PERC7.5T13 PO (16:48)
[2017-01-21] MEDS ORDERED: ZOFR4TAB3 SL (16:48)
[2017-01-21] MEDS ORDERED: TAMS0.4C4 PO (16:48)
== END 2017-01-20 15:29 | disposition home or self-care (01) ==
LOC: NEPE 18:12 → NEDA 21:17 → NEPFCDU 22:12
PROVIDERS: ADMIT Internal Medicine; ATTEND Internal Medicine
DX: N20.2 Calculus of kidney with calculus of ureter (principal); I10 Essential (primary) hypertension; E11.9 Type 2 diabetes mellitus without complications; Z79.4 Long term (current) use of insulin
CPT/HCPCS: 74176; 80053; 81001; 85025; 96361; 96374; 96375; 96376; 99285; G0378; J1885; J2270; J2405; J7030

== ENCOUNTER 2017-01-21 14:45 | Emergency (ER) | payer SELFPAY ==
[~2017-01-21 14:45] MED LIST: ENAL10TA PO; GLYB2.5T3 PO; KETO10 PO; TAMS5CAP PO
[2017-01-21 14:47] VITALS: BP 163/96; PULSE 72; RESP 14; TEMP 98.2; O2SAT 100
--- NOTE | 2017-01-21 15:06 | PD ---
Physical Exam Time Seen by Provider: 15:03 Narrative Patient is Polish-speaking. Triage assessment is limited. 51-year-old male resents with left flank pain. Patient appears painful. He was here on January [address] findings revealing an acute obstructive uropathy on the left as well as surprisingly a fluid-filled dilated retrocecal appendix with mild inflammatory changes raising the possibility of appendicitis. Patient seen in triage. VS reviewed. Awaiting bed placement. Data Data Last Documented VS Vital Signs Date Time Temp Pulse Resp B/P (MAP) Pulse Ox O2 Delivery O2 Flow Rate FiO2 01/21/17 14:47 98.2 72 14 163/96 (118) 100 MDM Supervised Visit with RODRIGUEZ: Magda Cota Jan 21, 2017 15:06
[2017-01-21] MEDS ORDERED: SODIUM CHLORIDE 0.9% FLUSH 10 ML FLUSH IVF PRN (15:30)
[2017-01-21] MEDS ORDERED: KETOROLAC TROMETHAMINE 30 MG/ML (IVP) VIAL IVP ONE (15:30)
[2017-01-21] MEDS ORDERED: SODIUM CHLOR 0.9% 1000 ML INJ 1,000 ML IV ONE (15:30)
[2017-01-21] MEDS ORDERED: ONDANSETRON HCL 4 MG/2 ML VIAL IVP ONE (15:30)
[2017-01-21] MEDS ORDERED: HYDROmorphone HCL PF 1 MG/ML VIAL IV PUSH ONE (15:30)
--- NOTE | 2017-01-21 15:32 | PD ---
HPI Chief Complaint: Flank/Kidney Pain Time Seen by Provider: 15:24 Travel History International Travel<30 days: No Contact w/Intl Traveler<30days: No Traveled to known affect area: No History of Present Illness HPI 51 YO M presents to the ED for evaluation of 2 hour history of sudden onset, cramping, left flank pain. He endorses accompanying nausea. Denies vomiting, fever, chills, dysuria. Patient states symptoms are similar to previous episodes of kidney stones. Patient states he was discharged from the hospital yesterday with similar symptoms. PFSH Past Medical History Blood Disorders: No Cancer: No Cardiovascular Problems: No Diabetes: Yes Endocrine: Yes Genitourinary: Yes (PAST KIDNEY STONE) Hypertension: Yes Immune Disorder: No Musculoskeletal: No Neurologic: No Psychiatric: No Reproductive: No Respiratory: No Social History Alcohol Use: No Tobacco Use: Yes Substance Use: No Allergies-Medications (Allergen,Severity, Reaction): Coded Allergies: No Known Allergies (Unverified , 01/19/17) Reported Meds & Prescriptions Reported Meds & Active Scripts Active Zofran Odt (Ondansetron Odt) 4 Mg Tab 4 Mg SL Q12HR PRN Percocet (Oxycodone-Acetaminophen) 7.5-325 mg Tab 1 Tab PO Q6H PRN Tamsulosin (Tamsulosin HCl) 0.4 Mg Cap 0.4 Mg PO HS Enalapril (Enalapril Maleate) 10 Mg Tab 10 Mg PO DAILY Glyburide 2.5 Mg Tab 2.5 Mg PO TIDAC Take with meals at the same time each day Review of Systems Except as stated in HPI: all other systems reviewed are Neg Physical Exam Narrative GENERAL: Well-nourished, well-developed restless male in no acute distress. SKIN: Focused skin assessment warm/dry. HEAD: Normocephalic. EYES: No scleral icterus. No injection or drainage. NECK: Supple, trachea midline. No JVD or lymphadenopathy. CARDIOVASCULAR: Regular rate and rhythm without murmurs, gallops, or rubs. RESPIRATORY: Breath sounds equal bilaterally. No accessory muscle use. GASTROINTESTINAL: Abdomen soft, non-tender, nondistended. Hypoactive bowel sounds. MUSCULOSKELETAL: No cyanosis, or edema. Moves extremities spontaneously. BACK: Nontender without obvious deformity. + left sided CVA tenderness. Data Data Last Documented VS Vital Signs Date Time Temp Pulse Resp B/P (MAP) Pulse Ox O2 Delivery O2 Flow Rate FiO2 01/21/17 15:49 66 26 01/21/17 14:47 98.2 163/96 (118) 100 Orders Orders Complete Blood Count With Diff (01/21/17 15:28) Comprehensive Metabolic Panel (01/21/17 15:28) Urinalysis - C+S If Indicated (01/21/17 15:28) Ct Abd/Pel W/O Iv Contrast (01/21/17 15:28) Iv Access Insert/Monitor (01/21/17 15:28) Ketorolac Inj (Toradol Inj) (01/21/17 15:30) Ondansetron Inj (Zofran Inj) (01/21/17 15:30) Sodium Chloride 0.9% Flush (Ns Flush) (01/21/17 15:30) Hydromorphone Pf Inj (Dilaudid Pf Inj) (01/21/17 15:30) Sodium Chlor 0.9% 1000 Ml Inj (Ns 1000 M (01/21/17 15:30) Tamsulosin (Flomax) (01/21/17 16:30) Morphine Inj (Morphine Inj) (01/21/17 17:00) Labs Laboratory Tests Test 01/21/17 15:39 White Blood Count 11.2 TH/MM3 Red Blood Count 4.31 MIL/MM3 Hemoglobin 13.2 GM/DL Hematocrit 39.3 % Mean Corpuscular Volume 91.2 FL Mean Corpuscular Hemoglobin 30.5 PG Mean Corpuscular Hemoglobin Concent 33.5 % Red Cell Distribution Width 13.2 % Platelet Count 274 TH/MM3 Mean Platelet Volume 8.7 FL Neutrophils (%) (Auto) 63.4 % Lymphocytes (%) (Auto) 21.8 % Monocytes (%) (Auto) 10.8 % Eosinophils (%) (Auto) 3.3 % Basophils (%) (Auto) 0.7 % Neutrophils # (Auto) 7.1 TH/MM3 Lymphocytes # (Auto) 2.4 TH/MM3 Monocytes # (Auto) 1.2 TH/MM3 Eosinophils # (Auto) 0.4 TH/MM3 Basophils # (Auto) 0.1 TH/MM3 CBC Comment DIFF FINAL Differential Comment Urine Color YELLOW Urine Turbidity CLEAR Urine pH 7.0 Urine Specific [place] 1.019 Urine Protein NEG mg/dL Urine Glucose (UA) NEG mg/dL Urine Ketones NEG mg/dL Urine Occult Blood NEG Urine Nitrite NEG Urine Bilirubin NEG Urine Urobilinogen LESS THAN 2.0 MG/DL Urine Leukocyte Esterase NEG Urine WBC 1 /hpf Urine Mucus FEW /lpf Microscopic Urinalysis Comment CULT NOT INDICATED Blood Urea Nitrogen 14 MG/DL Creatinine 1.33 MG/DL Random Glucose 108 MG/DL Total Protein 7.6 GM/DL Albumin 4.4 GM/DL Calcium Level 9.4 MG/DL Alkaline Phosphatase 78 U/L Aspartate Amino Transf (AST/SGOT) 29 U/L Alanine Aminotransferase (ALT/SGPT) 49 U/L Total Bilirubin 0.9 MG/DL Sodium Level 139 MEQ/L Potassium Level 3.8 MEQ/L Chloride Level 106 MEQ/L Carbon Dioxide Level 27.1 MEQ/L Anion Gap 6 MEQ/L Estimat Glomerular Filtration Rate 57 ML/MIN MDM Medical Decision Making Medical Screen Exam Complete: Yes Emergency Medical Condition: Yes Differential Diagnosis Nephroureterolithiasis versus hydronephrosis versus urinary obstruction versus pyelonephritis versus other Narrative Course 51 YO M presents to the ED for evaluation of 2 hour history of sudden onset, cramping, left flank pain. He endorses accompanying nausea. Denies vomiting, fever, chills, dysuria. Patient states symptoms are similar to previous episode of kidney stones. Patient states he was discharged from the hospital yesterday with similar symptoms. Patient is Irish-speaking only. All communication was through the [employer] service. Vitals reviewed. Physical exam reveals restless male with positive CVA tenderness on the left. Otherwise unremarkable. He was administered 1 L of fluids, 0.4 mg Flomax by mouth and, 0.5 mg Dilaudid , 30 mg Toradol, 4 mg Zofran IV. Reveals that Dr. Horne and he consulted with the patient who opted to try to pass the stone at home. CT reveals a 4 mm distal left ureteral stone with obstructive uropathy, unchanged since previous CT. I discussed the need for potential surgical intervention with the patient. The patient lives in [place], states that he plans to go home today. He like to take some outpatient medications and follow-up when he returns home. I think this is a reasonable plan. I discussed the plan with Dr. Chi who is in agreement. Patient was prescribed a short course of Flomax, Percocet and Zofran. He is instructed not to drive while taking pain medications. He should follow up at either the emergency department or urological office depending on the severity of his symptoms when he returns home. He indicated understanding of the discharge instructions. He is stable and discharged home. Diagnosis Primary Impression: Nephrolithiasis Referrals: Urologist Patient Instructions: General Instructions, Kidney Stones (ED) Additional Instructions: Rest, hydrate. Take medication as needed for pain and nausea. Do not drive while taking these medications. Follow-up with the emergency room in [place] if symptoms persist. If you pass the stone and symptoms resolve. You may follow up with the urologist in his office. Return to the ED for any urgent or emergent medical condition. Med/Other Pt SpecificInfo: Prescription(s) given Scripts Ondansetron Odt (Zofran Odt) 4 Mg Tab 4 MG SL Q12HR Y for Nausea/Vomiting, #4 TAB 0 Refills Prov: Mercedes Chi MD 01/21/17 Oxycodone-Acetaminophen (Percocet) 7.5-325 mg Tab 1 TAB PO Q6H Y for PAIN, #10 TAB 0 Refills Prov: Mercedes Chi MD 01/21/17 Tamsulosin (Tamsulosin) 0.4 Mg Cap 0.4 MG PO HS for Manage Prostate Problems, #10 CAP 0 Refills Prov: Mercedes Chi MD 01/21/17 Disposition: 01 DISCHARGE HOME Condition: Stable Kalani Prieto Jan 21, 2017 15:32
[2017-01-21 16:11] LABS: AUTOMATED NEUTROPHIL # 7.1 TH/MM3 (1.8-7.7); BASOPHIL # 0.1 TH/MM3 (0-0.2); BASOPHIL % 0.7 % (0.0-2.0); EOSINOPHIL # 0.4 TH/MM3 (0-0.4); EOSINOPHIL % 3.3 % (0.0-4.0); HEMATOCRIT 39.3 % (39.0-51.0); HEMO FLAGS DIFF FINAL; LYMPH % 21.8 % (9.0-44.0); LYMPHOCYTE # 2.4 TH/MM3 (1.0-4.8); MEAN CELL VOLUME 91.2 FL (80.0-100.0); MEAN CORPUSCULAR HEMOGLOBIN 30.5 PG (27.0-34.0); MEAN CORPUSCULAR HGB CONC 33.5 % (32.0-36.0); MONO % 10.8 % (0.0-8.0); NEUT % 63.4 % (16.0-70.0); PLATELET COUNT 274 TH/MM3 (150-450); RED BLOOD COUNT 4.31 MIL/MM3 (4.50-5.90); RED CELL DISTRIBUTION WIDTH 13.2 % (11.6-17.2); WHITE BLOOD COUNT 11.2 TH/MM3 (4.0-11.0)
--- NOTE | 2017-01-21 16:19 | RADRPT ---
EXAM DATE/TIME: 01/21/2017 15:59 [facility] COMPARISON: CT ABDOMEN & PELVIS W/O CONTRAST, January 19, 2017, 19:50. INDICATIONS : Flank pain. ORAL CONTRAST: No oral contrast ingested. RADIATION DOSE: 14.77 CTDIvol (mGy) MEDICAL HISTORY : Hypertension. Diabetes mellitus type 2. SURGICAL HISTORY : None. ENCOUNTER: Initial ACUITY: 1 day PAIN SCALE: 5/10 LOCATION: Bilateral flank TECHNIQUE: Volumetric scanning of the abdomen and pelvis was performed. Using automated exposure control and ad justment of the mA and/or kV according to patient size, radiation dose was kept as low as reasonably achievable to obtain optimal diagnostic quality images. DICOM format image data is available electro nically for review and comparison. FINDINGS: Relative prior study there has been noted via a 4 mm distal left ureteral calculus with mild secondar y obstructive uropathy. 2 punctate right kidney non-obstructing calyceal stones are appreciated one m idpole one lower pole. The fluid filled dilated retrocecal appendix is not appreciated and appears to be replaced by a loop of small bowel nondilated. Matthew. the abdomen is stable and benign. CONCLUSION: Persistent 4 mm distal left ureteral calculus with obstructive uropathy. 2 punctate right kidney lenin ceal nonobstructing stones. The dilated fluid-filled appendix noted on prior examination is absent on today's study and the area is replaced by a nondilated loop of small bowel. Possibility of appendici tis is diminished clinical correlation recommended. Gabriel Flaherty MD on January 21, 2017 at 16:11 Board Certified Radiologist. This report was verified electronically.
[2017-01-21] MEDS ORDERED: TAMSULOSIN HCL 0.4 MG CAP PO ONE (16:30)
[2017-01-21 16:35] LABS: BLOOD, URINE NEG (NEG); COMMENT (UR) CULT NOT INDICATED; CULTURE IF INDICATED CULT NOT INDICATED; GLUCOSE,URINE NEG (NEG); KETONE, URINE NEG (NEG); MUCUS URINE FEW /lpf (OCC); NITRITE,URINE NEG (NEG); URINE COLOR YELLOW (YELLW/STRAW)
[2017-01-21 16:45] LABS: ALT (GPT) 49 U/L (12-78); ANION GAP 6 MEQ/L (5-15); AST (GOT) 29 U/L (15-37); BICARBONATE 27.1 MEQ/L (21.0-32.0); BLOOD UREA NITROGEN 14 MG/DL (7-18); CHLORIDE 106 MEQ/L (98-107); GLOMERULAR FILTRATION RATE 57 ML/MIN (>89); POTASSIUM 3.8 MEQ/L (3.5-5.1); SODIUM (NA) 139 MEQ/L (136-145)
[2017-01-21] MEDS ORDERED: TAMS0.4C4 PO (16:48)
[2017-01-21] MEDS ORDERED: ZOFR4TAB3 SL (16:48)
[2017-01-21] MEDS ORDERED: PERC7.5T13 PO (16:48)
[2017-01-21 16:54] LABS: ALKALINE PHOSPHATASE 78 U/L (45-117); TOTAL BILIRUBIN ADULT 0.9 MG/DL (0.2-1.0)
[2017-01-21] MEDS ORDERED: MORPHINE SULFATE 4 MG/ML INJ IV PUSH ONE (17:00)
== END 2017-01-21 18:02 | disposition home or self-care (01) ==
LOC: NEPC 14:45
DX: N20.0 Calculus of kidney (principal); R11.0 Nausea; E11.9 Type 2 diabetes mellitus without complications; I10 Essential (primary) hypertension; Z72.0 Tobacco use; Z79.84 Long term (current) use of oral hypoglycemic drugs; Z87.442 Personal history of urinary calculi
CPT/HCPCS: 74176; 80053; 81001; 85025; 96374; 96375; 99285; J1170; J1885; J2270; J2405; J7030